=== PATIENT | male | born 1950 | race Caucasian/White ===

== ENCOUNTER → 2024-08-16 09:32 | Outpatient (REF) | payer MEDICARE, SELFPAY | LOC: RST 09:32 | PROVIDERS: ATTENDING PHYSICIAN Family Medicine | DX: R13.13 Dysphagia, pharyngeal phase (principal) | CPT/HCPCS: 74230; 92611 ==

== ENCOUNTER → 2024-08-19 12:53 | Outpatient (REF) | payer MEDICARE, SELFPAY | LOC: PAVMRI 12:53 | PROVIDERS: ATTENDING PHYSICIAN Family Medicine | DX: R41.3 Other amnesia (principal); F32.89 Other specified depressive episodes; H91.8X3 Other specified hearing loss, bilateral; R13.19 Other dysphagia | CPT/HCPCS: 70551 ==

== ENCOUNTER → 2024-08-28 12:27 | Outpatient (REF) | payer MEDICARE, SELFPAY | LOC: RCS 12:27 | PROVIDERS: ATTENDING PHYSICIAN Family Medicine | DX: I63.89 Other cerebral infarction (principal) | CPT/HCPCS: 93225; 93226 ==

== ENCOUNTER → 2024-12-07 14:41 | Outpatient (REF) | payer MEDICARE, SELFPAY | LOC: RCS 14:41 | PROVIDERS: ATTENDING PHYSICIAN Internal Medicine Cardiovascular Disease; FAMILY PHYSICIAN Family Medicine | DX: R94.31 Abnormal electrocardiogram [ECG] [EKG] (principal) | CPT/HCPCS: 93306 ==